=== PATIENT | female | born 1995 | race Caucasian/White ===

== ENCOUNTER 2017-05-03 12:38 | Emergency (ER) | payer MEDICAID ==
[~2017-05-03 12:38] MED LIST: AUGM875T PO
--- NOTE | 2017-05-03 14:26 | PD ---
HPI Chief Complaint abdominal pain, back and hip pain Date Seen: May 03, 2017 Time Seen: 14:00 Travel History International Travel<30 Days: No Contact w/Intl Traveler<30Days: No Known Affected Area: No History of Present Illness HPI Pt is a 21yo at 30 weeks and 6 days who presents with hip, back, and lateral abdominal pain since last night. She reports that her pain started last night around midnight. She has tried Tylenol, which did not help. She describes the pain as sharp and achy. She reports that the pain radiates down to her inner thigh and pelvic area and up to her ribs BL. She reports that the pain alternates sides and is worse when it is bilateral. 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 She denies any CTX, LOF, VB. She reports FM around 4 times per hour, down from constant FM. Para: 1 : 3 Miscarriage: 1 History Past Medical History Narrative Medical [employer] Act at 12 yo. Obstetric History Obstetric History for no dilation after 18 hours of labor during IOL for post-dates. She gave to a 8 lb 3oz boy on 05/19/14. She also reports a m/c at 16 weeks of gestation. Past Surgical History Narrative Surgical as above. Family History Narrative Family History Her father has DM. Social History Narrative Social History She lives at home with her mother, son, little brother. She used to smoke 1ppd before she found out she was , then she stopped after she found out she was . Alcohol Use: No Tobacco Use: No Substance Abuse: No Allergies-Medications (Allergen,Severity, Reaction): Coded Allergies: Bee Sting (Verified Allergy, Severe, 06/01/16) Cefizox (Verified Allergy, Severe, 06/01/16) Wasp (Verified Allergy, Unknown, 06/01/16) Home Meds Active Scripts Amoxicillin & Pot Clavulanate 875 mg Tab (Augmentin 875 mg Tab)875 Mg [id number] Mg PO BID 10 Days Prov:Cynthia Arriola MD 06/01/16 Narrative Medication PNV Review of Systems General / Constitutional: No: Fever, Weight Gain, Chills, Other Eyes: No: Diploplia, Blurred Vision, Visual changes, Pain, Photophobia HENT: Headaches, No: Vertigo, Lightheadedness Cardiovascular: No: Irregular Rhythm, Chest Pain or Discomfort, Palpitations, Tachycardia, Syncope, Varicosities, Edema, Cyanosis Respiratory: No: Cough, Short of Breath, Other Gastrointestinal: Abdominal Pain, No: Nausea, Vomiting, Diarrhea Genitourinary: No: Dysuria, Decreased Urinary Output, Oliguria Musculoskeletal: Pain (per HPI), No: Limited ROM, Weakness, Cramping, Edema Physical Exam 131/65, 93, 20, 98.6 Narrative GENERAL: Well-nourished, well-developed patient. SKIN: Warm and dry. HEAD: Normocephalic and atraumatic. EYES: No scleral icterus. No injection or drainage. ENT: No nasal drainage noted. Mucous membranes pink. Airway patent. NECK: Supple, trachea midline. No JVD. CARDIOVASCULAR: Regular rate and rhythm without murmurs, gallops, or rubs. RESPIRATORY: Breath sounds equal bilaterally. No accessory muscle use. ABDOMEN/GI: Abdomen soft, non-tender, bowel sounds present, no rebound, no guarding Gravid to 30 weeks size GENITOURINARY: External Genitalia: intact and normal in appearance Cervix: posterior Dilatation: 0cm, closed Effacement: thick Station: long Membranes: [intact] Uterine Contractions: [none] FHT's: Category: [Cat I] Baseline: [130] Reactive: [reactive] Variability: [moderate] Decels: [none] EXTREMITIES: No cyanosis or edema. BACK: Nontender without obvious deformity. No CVA tenderness. NEUROLOGICAL: Awake and alert. Motor and sensory grossly within normal limits. Five out of 5 muscle strength in all muscle groups. Normal speech. Data Data Vital Signs Reviewed: Yes Orders Fentanyl Inj (Fentanyl Inj) (05/03/17 14:15) MDM Plan Pt is a 21yo at 30 weeks and 6 days who presents with hip, back, and lateral abdominal pain since last night. 1. abdominal pain in third trimester of - ddx includes round lig pain , pain from adhesions, MSK pain - monitor vitals, labor status, heart rate - Fentanyl 50 mcg IM once - recommended bedrest s/d/w Dr. Medrano. Diagnosis Diagnosis: Primary Impression: Abdominal pain during Additional Impressions: Abdominal pain during in third trimester Abdominal pain during , antepartum Ruled Out: Active labor Disposition: DISCHARGE HOME Condition: Good Dell Donnelly MD R2 May 03, 2017 14:26
[2017-07-05] MEDS ORDERED: OXYC1TAB63 PO (16:23)
== END 2017-05-03 15:14 | disposition home or self-care (01) ==
LOC: HOBED 12:38
DX: O26.893 Other specified pregnancy related conditions, third trimester (principal); R10.9 Unspecified abdominal pain; Z3A.30 30 weeks gestation of pregnancy
CPT/HCPCS: 96372; 99284; J3010

== ENCOUNTER 2017-06-17 15:11 | Emergency (ER) | payer MEDICAID ==
--- NOTE | 2017-06-17 15:58 | PD ---
HPI Chief Complaint Leakage of fluid some pelvic pressure Date Seen: Jun 17, 2017 Time Seen: 15:50 Travel History International Travel<30 Days: No Contact w/Intl Traveler<30Days: No Known Affected Area: No History of Present Illness HPI Patient is 22-year-old white female previous who is 37 weeks and [facility] She is some loss of fluid per vagina and came in have that checked. She is also having some tightening and pressure. Her amnio sure is negative today. heart tones are reactive no contractions seen she is scheduled for consult this coming Sunday Weeks Gestation: 37 Para: 1 : 3 History Obstetric History Obstetric History Previous Past Surgical History Narrative Surgical One Social History Alcohol Use: No Tobacco Use: No Substance Abuse: No Allergies-Medications (Allergen,Severity, Reaction): Coded Allergies: bee venom protein (honey bee) (Unverified Allergy, Severe, 05/08/17) ceftizoxime (Unverified Allergy, Severe, 05/08/17) hornet venom (Unverified Allergy, Unknown, 05/08/17) Home Meds Active Scripts Amoxicillin & Pot Clavulanate 875 mg Tab (Augmentin 875 mg Tab) 875 Mg Tab, 875 MG PO BID for 10 Days, TAB Prov:Cynthia Arriola MD 06/01/16 Review of Systems General / Constitutional: No: Fever, Weight Gain, Chills, Other Eyes: No: Diploplia, Blurred Vision, Visual changes, Pain, Photophobia HENT: No: Headaches, Vertigo, Lightheadedness Cardiovascular: No: Irregular Rhythm, Chest Pain or Discomfort, Palpitations, Tachycardia, Syncope, Varicosities, Edema, Cyanosis Respiratory: No: Cough, Short of Breath, Other Gastrointestinal: No: Nausea, Vomiting, Diarrhea Genitourinary: No: Decreased Urinary Output, Oliguria Musculoskeletal: No: Limited ROM, Weakness, Cramping, Edema, Pain Skin: No Rash, No Itching, No Dryness, No Lumps, No Change in Pigmentation, No Change in Nails, No Alopecia, No Lesions Neurologic: No: Weakness, Dizziness, Syncope, Focal Abnormalities, Coordination Problem, Headache, Slurred Speech, Seizures Psychiatric: No: Depression, Suicidal Ideations, Homicidal Ideation Endocrine: No: Heat Intolerance, Cold Intolerance, Polydipsia, Polyuria, Other Physical Exam Narrative GENERAL: Well-nourished, well-developed patient. SKIN: Warm and dry. HEAD: Normocephalic and atraumatic. EYES: No scleral icterus. No injection or drainage. ENT: No nasal drainage noted. Mucous membranes pink. Airway patent. NECK: Supple, trachea midline. No JVD. CARDIOVASCULAR: Regular rate and rhythm without murmurs, gallops, or rubs. RESPIRATORY: Breath sounds equal bilaterally. No accessory muscle use. BREASTS: Bilateral exam showed no masses , no retractions, no nipple discharge. ABDOMEN/GI: Abdomen soft, non-tender, bowel sounds present, no rebound, no guarding Gravid to [-37] weeks size Fundal Height: [-37] GENITOURINARY: External Genitalia: intact and normal in appearance BUS glands: [-] Cervix: [post-] Dilatation: [-0] Effacement: [-0] Station: [-3] Presentation: [-vtx] Membranes: [intact amnisure neg] Uterine Contractions: [-occasional] FHT's: Category: [-1] Baseline: [-133] Reactive: [-yes] Variability: [mod-] Decels: [none-] EXTREMITIES: No cyanosis or edema. BACK: Nontender without obvious deformity. No CVA tenderness. NEUROLOGICAL: Awake and alert. Motor and sensory grossly within normal limits. Five out of 5 muscle strength in all muscle groups. Normal speech. MDM Interpretation(s) The patient is 22-year-old white female 37 weeks previous for repeat section at 39 weeks. She is loss of fluid today amnio sure is negative however. She's had no further leakage. No bleeding. On OB ED if heart rate is reactive and she is having occasional contraction. Cervix is closed and high Plan Plan to discharge home and she is to follow-up for consult and 4 days Diagnosis Diagnosis: Primary Impression: No leakage of amniotic fluid into vagina Additional Impressions: no leakage Previous section Disposition: DISCHARGE HOME Condition: Stable Fox Medrano II, MD Jun 17, 2017 15:58
[2017-07-05] MEDS ORDERED: OXYC1TAB63 PO (16:23)
== END 2017-06-17 16:40 | disposition home or self-care (01) ==
LOC: HOBED 15:11
DX: O26.893 Other specified pregnancy related conditions, third trimester (principal); O34.219 Maternal care for unspecified type scar from previous cesarean delivery; Z3A.37 37 weeks gestation of pregnancy
CPT/HCPCS: 84112; 99283

== ENCOUNTER 2017-06-29 08:24 | Inpatient (IN) | payer BC, MEDICAID ==
[~2017-06-29] VITALS: Ht 170.2 cm; Wt 123.0 kg
[2017-06-29] VITALS (13 sets, daily range): BP systolic 90–126; BP diastolic 51–84; PULSE 66–88; RESP 13–23; TEMP 97.7–98.4; O2SAT 97–100
[2017-06-29] MEDS ORDERED: LACTATED RINGER'S 1000 ML INJ 1,000 ML IV ONE (08:44)
--- NOTE | 2017-06-29 08:44 | HHI.HP ---
History & Physical H&P [facility] Consult (Detail) Patient Name: David Camacho Unit Number: [id number] Date of : 1995 Patient Status: Registered Clinic Attending Doctor: Fox Medrano II, MD HPI HPI Chief Complaint Patient here for repeat Date Seen: Jun 20, 2017 Time Seen: 14:00 Travel History International Travel<30 Days: No Contact w/Intl Traveler<30Days: No Known Affected Area: No History of Present Illness HPI This is 22-year-old white female G previous 39 wks has gone to [facility] has had regular visits no complications. Currently baby is active heart tracing reactive contractions she is not dilated no bleeding or leakage her due date is July 06 Weeks Gestation: 37 Para: 1 : 2 History (Limited) History Obstetric History Obstetric History Past Surgical History Narrative Surgical Social History Alcohol Use: No Tobacco Use: No Substance Abuse: No Allergies-Medications Allergies-Medications (Allergen,Severity, Reaction): Coded Allergies: bee venom protein (honey bee) (Unverified Allergy, Severe, 05/08/17) ceftizoxime (Unverified Allergy, Severe, 05/08/17) hornet venom (Unverified Allergy, Unknown, 05/08/17) Home Meds Active Scripts Amoxicillin & Pot Clavulanate 875 mg Tab (Augmentin 875 mg Tab) 875 Mg Tab, 875 MG PO BID for 10 Days, TAB Prov:Cynthia Arriola MD 06/01/16 ROS Review of Systems General / Constitutional: No: Fever, Weight Gain, Chills, Other Eyes: No: Diploplia, Blurred Vision, Visual changes, Pain, Photophobia HENT: No: Headaches, Vertigo, Lightheadedness Cardiovascular: No: Irregular Rhythm, Chest Pain or Discomfort, Palpitations, Tachycardia, Syncope, Varicosities, Edema, Cyanosis Respiratory: No: Cough, Short of Breath, Other Gastrointestinal: No: Nausea, Vomiting, Diarrhea Genitourinary: No: Decreased Urinary Output, Oliguria Musculoskeletal: No: Limited ROM, Weakness, Cramping, Edema, Pain Skin: No Rash, No Itching, No Dryness, No Lumps, No Change in Pigmentation, No Change in Nails, No Alopecia, No Lesions Neurologic: No: Weakness, Dizziness, Syncope, Focal Abnormalities, Coordination Problem, Headache, Slurred Speech, Seizures Psychiatric: No: Depression, Suicidal Ideations, Homicidal Ideation Endocrine: No: Heat Intolerance, Cold Intolerance, Polydipsia, Polyuria, Other Physical Exam Physical Exam Narrative GENERAL: Well-nourished, well-developed patient. SKIN: Warm and dry. HEAD: Normocephalic and atraumatic. EYES: No scleral icterus. No injection or drainage. ENT: No nasal drainage noted. Mucous membranes pink. Airway patent. NECK: Supple, trachea midline. No JVD. CARDIOVASCULAR: Regular rate and rhythm without murmurs, gallops, or rubs. RESPIRATORY: Breath sounds equal bilaterally. No accessory muscle use. BREASTS: Bilateral exam showed no masses , no retractions, no nipple discharge. ABDOMEN/GI: Abdomen soft, non-tender, bowel sounds present, no rebound, no guarding Gravid to [38-] weeks size Fundal Height: [38-] GENITOURINARY: External Genitalia: intact and normal in appearance BUS glands: [-] Cervix: [-Post] Dilatation: [-] Closed Effacement: Thick [-] Station: [-3] Presentation: [-vtx] Membranes: [intact ] Uterine Contractions: [none-] FHT's: Category: [-1] Baseline: [-133] Reactive: [-yes] Variability: [mod-] Decels: [none-] EXTREMITIES: No cyanosis or edema. BACK: Nontender without obvious deformity. No CVA tenderness. NEUROLOGICAL: Awake and alert. Motor and sensory grossly within normal limits. Five out of 5 muscle strength in all muscle groups. Normal speech. Data Data Data Group B Strep: Positive MDM MDM Interpretation(s) Patient is 22-year-old white female at 39 wks previous 1 for repeat . She understands risks benefits and was repeat. Due date July 06 plan week prior to June 29 Plan Scheduled for for 10:30 in the morning on June [address] Salamanca Diagnosis: previous Disposition: ADMIT Condition: Stable Fox Medrano II, MD Jun 20, 2017 14:14 Fox Medrano II, MD Jun 29, 2017 08:44
[2017-06-29 09:09] LABS: AUTOMATED NEUTROPHIL # 6.3 TH/MM3 (1.8-7.7); BASOPHIL % 0.2 % (0.0-2.0); EOSINOPHIL % 0.5 % (0.0-4.0); HEMATOCRIT 36.9 % (35.0-46.0); HEMO FLAGS DIFF FINAL; LYMPH % 19.5 % (9.0-44.0); LYMPHOCYTE # 1.7 TH/MM3 (1.0-4.8); MEAN CELL VOLUME 87.3 FL (80.0-100.0); MEAN CORPUSCULAR HEMOGLOBIN 30.1 PG (27.0-34.0); MEAN CORPUSCULAR HGB CONC 34.4 % (32.0-36.0); MONO % 7.7 % (0.0-8.0); NEUT % 72.1 % (16.0-70.0); PLATELET COUNT 231 TH/MM3 (150-450); RED BLOOD COUNT 4.23 MIL/MM3 (4.00-5.30); RED CELL DISTRIBUTION WIDTH 13.6 % (11.6-17.2); WHITE BLOOD COUNT 8.8 TH/MM3 (4.0-11.0)
[2017-06-29] MEDS ORDERED: LACTATED RINGER'S 1000 ML INJ 1,000 ML IV SCH ×2 (09:14→17:59)
[2017-06-29 09:57] LABS: ANION GAP 9 MEQ/L (5-15); AST (GOT) 9 U/L (15-37); BICARBONATE 20.1 MEQ/L (21.0-32.0); BLOOD UREA NITROGEN 4 MG/DL (7-18); CHLORIDE 109 MEQ/L (98-107); GLOMERULAR FILTRATION RATE 210 ML/MIN (>89); POTASSIUM 3.9 MEQ/L (3.5-5.1); SODIUM (NA) 138 MEQ/L (136-145)
[2017-06-29 10:01] LABS: BLOOD, URINE NEG (NEG); COMMENT (UR) CULT NOT INDICATED; CULTURE IF INDICATED CULT NOT INDICATED; GLUCOSE,URINE NEG (NEG); KETONE, URINE NEG (NEG); MUCUS URINE FEW /lpf (OCC); NITRITE,URINE NEG (NEG); SQUAMOUS EPITHELIAL CELL URINE 2 /hpf (0-5); URINE COLOR YELLOW (YELLW/STRAW)
[2017-06-29 10:05] LABS: ALKALINE PHOSPHATASE 107 U/L (45-117); ALT (GPT) 11 U/L (10-53); TOTAL BILIRUBIN ADULT 0.2 MG/DL (0.2-1.0)
[2017-06-29] MEDS ORDERED: CITRIC ACID-SODIUM CITRATE LIQ 30 ML UDC PO SCH (10:15)
[2017-06-29] MEDS ORDERED: ACETAMINOPHEN 1000 MG/100 ML 100 ML IV ONE (10:51)
[2017-06-29] MEDS ORDERED: CLINDAMYCIN INJ 600 MG in SODIUM CHLORIDE 0.9% INJ 100 ML IV SCH (11:00)
[2017-06-29] MEDS ORDERED: ONDANSETRON HCL 4 MG/2 ML VIAL IV PUSH ONE (12:00)
[2017-06-29] MEDS ORDERED: MORPHINE SULFATE PF 5 MG/10 ML VIAL ONE (12:00)
[2017-06-29] MEDS ORDERED: ePHEDrine/NS 25 MG/5 ML SYR IV ONE (12:00)
[2017-06-29] MEDS ORDERED: LACTATED RINGER'S 1000 ML INJ 2,000 ML IV ONE (12:00)
[2017-06-29] MEDS ORDERED: OXYTOCIN 10 UNIT/ML AMP IV ONE (12:00)
[2017-06-29] MEDS ORDERED: PHENYLEPH/NS 1000 MCG/10 ML SYR IV ONE (12:00)
[2017-06-29] MEDS ORDERED: ZOLPIDEM TARTRATE 5 MG TAB PO PRN (13:00)
[2017-06-29] MEDS ORDERED: ACETAMINOPHEN 325 MG TAB PO PRN (13:00)
[2017-06-29] MEDS ORDERED: oxyCODONE/ACETAMINOPHEN 5 MG/325 MG TAB PO PRN (13:00)
[2017-06-29] MEDS ORDERED: KETOROLAC TROMETHAMINE 60 MG/2 ML (IM) VIAL IM PRN (13:00)
[2017-06-29] MEDS ORDERED: OXYTOCIN 30 UNITS-500ML PREMIX 500 ML IV ONE (13:00)
[2017-06-29] MEDS ORDERED: ONDANSETRON HCL 4 MG/2 ML VIAL IV PUSH PRN (13:00)
[2017-06-29] MEDS ORDERED: SODIUM CHLORIDE 0.9% FLUSH 10 ML FLUSH IV FLUSH PRN (13:00)
[2017-06-29] MEDS ORDERED: OXYTOCIN 30 UNITS-500ML PREMIX 500 ML ONE (13:03)
[2017-06-29] MEDS ORDERED: KETOROLAC TROMETHAMINE 30 MG/ML (IVP) VIAL ONE (13:07)
--- NOTE | 2017-06-29 13:26 | PD.OB.DELI ---
Procedure Note Section Procedure Pre Op Diagnosis: (1) 39 weeks gestation of (2) Previous section Post Op Diagnosis: (1) Previous section (2) 39 weeks gestation of Performed by Aldair Salamanca Procedure: Repeat Low Transverse Sec Indication for delivery: Desired elective repeat Previous condition: Other (previous LTCS) Informed consent obtained: For anesthesia, For procedure Confirmed correct: Time-out taken Anesthesia: Spinal Medication prior to procedure: As documented in eMAR Monitoring during procedure: Blood pressure monitoring, buckshot swage operator Urinary catheter: Inserted using sterile technique, To dependent drainage Sterile preparation: With 2% chlorexidine (Hibiclens) Position: Supine with wedge to left side Operative Features Skin Incision: Pfannenstiel Uterine Incision: Low transverse w/knife / blunt ext Presentation: Occiput anterior Delivery date: Jun 29, 2017 Delivery time: 11:26 Delivery of : Assisted : Female One Minute : 8 Five Minute : 9 Weight: 3800g Status of : Viable, Cord blood Placenta delivered: Intact Medications: Antibiotics, Oxytocin Estimated blood loss: 600cc Procedure tolerated: Well Maternal Condition: Stable Condition: Stable Procedure in detail Pt brought to OR , properly identified and informed consent reviewed. She positioned for spinal anesthesia which was induced without any difficulty. Pt was then positioned in dorsal supine position with slight leftward tilt. Ratliff catheter was inserted under sterile technique and allowed to drain under gravity. She was cleansed and draped in standard sterile fashion. After confirming adequacy of anesthesia Pfannensteil incision was made through her prior scar. Incision was taken through subcutaneous tissue using Bovie. Rectus fascia was scored and extended bilateral using curved Pathak scissors. Rectus fascia was then elevated between 2 Kocker clamps and dissected off from the underlying rectus muscle. rectus muscles were in midline and underlying peritoneum was identified.this tented upwards between 2 hemostats and entered sharply with Metzebaum scissors.The peritoneal incision was then extended superiorly and inferiorly with careful visualization of the bladder. bladder blade was then inserted. Vesico-uterine peritoneal reflection was identified, tented with pickups and extended bilaterally. Bladder flap was then created digitally. Bladder blade was then repositioned Fresh scalpel was then used to make incision over MONTSERRAT and amniotomy was done with clear fluid. was delivered without ant difficulty. Cord was clamped and divided and passed off to waiting pediatricians. Placenta membranes were delivered spontaneously and the uterus was cleared of all clot and debris. Uterus was then exteriorized and incision was closed in 3 layers, first of O Vicryl in a continuous locking fashion for hemostasis,and the second of the same material used to imbricate the first. After confirming adequacy of hemostasis, the vesico-uterine refection was reapproximated using 2.0 Vicryl. The gutters were cleansed of clots, and the uterus was returned to its intraperitoneal location. Sepra-film adhesion barrier was then placed over the incision and uterine fundus. parietal peritoneum was then closed with 2.0 Vicryl. fascia was closed with 1.0 PDS after which subcutaneous tissue was irrigated with warm saline, and reapproximated with continuous 2.0 Vicryl. finally skin was closed with 3.0 Vicryl in subcuticular fashion. sterile dressing placed. pt tolerated procedure well and transferred stable to recovery. Aldair Salamanca MD Jun 29, 2017 13:26
[2017-06-29] MEDS ORDERED: KETOROLAC TROMETHAMINE 30 MG/ML (IVP) VIAL IM ONE (14:00)
[2017-06-29] MEDS ORDERED: EPIDURAL-DIPHENHYDRAMINE HCL 50 MG/ML VIAL IV PUSH PRN (15:45)
[2017-06-29] MEDS ORDERED: EPIDURAL-NALOXONE HCL 0.4 MG/ML AMP IV PUSH PRN (15:45)
[2017-06-29] MEDS ORDERED: EPIDURAL-NO SYSTEMIC NARCOTICS PRN (15:45)
[2017-06-29] MEDS ORDERED: EPIDURAL-DO NOT ADMINISTER ANTICOAGULANTS PRN (15:45)
[2017-06-29] MEDS ORDERED: EPIDURAL-DIPHENHYDRAMINE HCL 50 MG CAP PO PRN (15:45)
[2017-06-29] MEDS: IBUPROFEN 600 MG TAB PO PRN (19:50)
[2017-06-29] MEDS: oxyCODONE/ACETAMINOPHEN 5 MG/325 MG TAB PO PRN (19:50)
[2017-06-29] MEDS: CLINDAMYCIN INJ 600 MG in SODIUM CHLORIDE 0.9% INJ 100 ML IV SCH (19:50)
[2017-06-29] MEDS ORDERED: SODIUM CHLORIDE 0.9% FLUSH 10 ML FLUSH IV FLUSH SCH (21:00)
[2017-06-30 01:00] VITALS: BP 103/50; PULSE 70; RESP 16; TEMP 98.4
[2017-06-30] MEDS: CLINDAMYCIN INJ 600 MG in SODIUM CHLORIDE 0.9% INJ 100 ML IV SCH (02:26)
[2017-06-30] MEDS: IBUPROFEN 600 MG TAB PO PRN (02:26)
[2017-06-30] MEDS: oxyCODONE/ACETAMINOPHEN 5 MG/325 MG TAB PO PRN ×5 (03:44→20:08)
[2017-06-30 05:57] LABS: AUTOMATED NEUTROPHIL # 5.5 TH/MM3 (1.8-7.7); BASOPHIL % 0.4 % (0.0-2.0); EOSINOPHIL # 0.1 TH/MM3 (0-0.4); EOSINOPHIL % 1.2 % (0.0-4.0); HEMATOCRIT 31.7 % (35.0-46.0); HEMO FLAGS DIFF FINAL; LYMPH % 22.3 % (9.0-44.0); LYMPHOCYTE # 1.9 TH/MM3 (1.0-4.8); MEAN CELL VOLUME 88.7 FL (80.0-100.0); MEAN CORPUSCULAR HEMOGLOBIN 30.2 PG (27.0-34.0); NEUT % 65.1 % (16.0-70.0); PLATELET COUNT 178 TH/MM3 (150-450); RED BLOOD COUNT 3.58 MIL/MM3 (4.00-5.30); RED CELL DISTRIBUTION WIDTH 13.4 % (11.6-17.2); WHITE BLOOD COUNT 8.5 TH/MM3 (4.0-11.0)
[2017-06-30 08:00] VITALS: BP 108/54; PULSE 16; RESP 16; TEMP 98
--- NOTE | 2017-06-30 08:10 | HHI.OB ---
Subjective Post Operative Day: 1 Remarks Postoperative day number 1. AFVSS overnight. Pain controlled with medications. Incision not draining. Decreased lochia. Denies dysuria. No breast tenderness. She is feeding the baby via breast. Appetite good. No nausea or vomiting. Endorses flatus. No bowel movement. Ambulating well. Denies calf pain, shortness of breath, or cough. Otherwise, she is doing well this morning and has no other complaints. Objective Vitals/I&O Vital Signs Date Time Temp Pulse Resp B/P (MAP) Pulse Ox O2 Delivery O2 Flow Rate FiO2 06/30/17 01:00 98.4 70 16 103/50 (67) 06/29/17 20:00 98.4 72 18 108/63 (78) 99 06/29/17 16:52 97.7 06/29/17 16:52 83 109/67 (81) 06/29/17 16:52 16 97 06/29/17 14:35 98.2 06/29/17 14:35 67 18 121/54 (76) 06/29/17 13:20 66 20 105/53 (70) 100 06/29/17 13:05 73 13 105/72 (83) 100 06/29/17 12:50 72 17 102/55 (71) 100 06/29/17 12:35 100 06/29/17 12:35 69 14 105/51 (69) 06/29/17 12:20 73 23 111/53 (72) 100 06/29/17 12:05 98.2 71 15 90/51 (64) 100 06/29/17 09:44 98.0 81 18 126/84 (98) 100 06/29/17 09:30 18 06/29/17 09:30 98.0 06/29/17 09:01 81 126/84 (98) 06/29/17 08:49 88 121/68 (85) Result Diagram: 06/30/17 0503 06/29/17 0855 Objective Remarks GENERAL: Well-nourished, well-developed patient. CARDIOVASCULAR: Regular rate and rhythm without murmurs, gallops, or rubs. RESPIRATORY: Breath sounds equal bilaterally. No accessory muscle use. ABDOMEN/GI: Abdomen soft, non-tender, bowel sounds present. Incision: Clean, dry and intact. Fundus: Firm, non-tender at umbilicus. GENITOURINARY: Light to moderate bleeding. EXTREMITIES: No cyanosis or edema, non-tender, without signs of DVT. Medications and IVs Current Medications Medications (Trade) Dose Ordered Sig/Rajeev Route Start Time Stop Time Status Last Admin (Jeovannya Liq) 30 ml DIETARY INTERNSHIP PO 06/29/17 10:15 07/03/17 10:14 06/29/17 10:50 Lactated Ringer's 1,000 ml @ 100 mls/hr Q10H IV 06/29/17 17:59 06/30/17 13:58 (NS Flush) 2 ml BID IV FLUSH 06/29/17 21:00 (NS Flush) 2 ml UNSCH PRN IV FLUSH 06/29/17 13:00 (Mylicon Chew) 80 mg QID PRN PO 06/29/17 13:00 (Tylenol) 650 mg Q6H PRN PO 06/29/17 13:00 (Motrin) 600 mg Q6H PRN PO 06/29/17 13:00 06/30/17 02:26 (Toradol Inj) 60 mg UNSCH X1 PRN IM 06/29/17 13:00 06/30/17 12:59 (Percocet 5-325 Mg) 1 tab Q4H PRN PO 06/29/17 13:00 06/30/17 00:00 (Percocet 5-325 Mg) 2 tab Q4H PRN PO 06/29/17 13:00 06/30/17 08:06 (Anisha-Colace) 2 tab Q12H PRN PO 06/29/17 13:00 (Ambien) 5 mg HS PRN PO 06/29/17 13:00 (M-M-R Ii Inj) 0.5 ml ONCE ONCE SQ 06/30/17 16:00 06/30/17 16:01 (Boostrix Inj) 0.5 ml ONCE ONCE IM 06/30/17 16:00 06/30/17 16:01 (Zofran Inj) 4 mg Q6H PRN IV PUSH 06/29/17 13:00 Miscellaneous Information NO SYSTEMIC NARCOTICS TO BE GIVEN FO... UNSCH PRN .XX 06/29/17 15:45 06/30/17 15:44 (Narcan Inj) 0.4 mg UNSCH PRN IV PUSH 06/29/17 15:45 06/30/17 15:44 (Benadryl Inj) 25 mg Q6H PRN IV PUSH 06/29/17 15:45 06/30/17 15:44 06/29/17 16:24 (Benadryl) 50 mg Q6H PRN PO 06/29/17 15:45 06/30/17 15:44 Miscellaneous Information ALL NURSING DEPARTMENTS UNSCH PRN .XX 06/29/17 15:45 06/30/17 15:44 Assessment/Plan Assessment and Plan 22y/o female who is POD#1 s/p CXN. -Continue routine care. -Percocet and Motrin PRN pain. -Encouraged OOB. Advised pelvic rest for 6 wks. Will need a f/u appt. in 1 wk for incision check. -Re: ctrl, she is undecided -D/c in 1-2 more days. dw OB attending Marcus Pimentel MD, R2 Jun 30, 2017 08:10
[2017-06-30] MEDS: KETOROLAC TROMETHAMINE 10 MG TAB PO PRN ×2 (09:19→15:33)
[2017-06-30 15:30] VITALS: BP 131/77; PULSE 76; RESP 18; TEMP 98.9
[2017-06-30] MEDS: DOCUSATE SODIUM 50 MG/SENNA 8.6 MG TAB PO PRN (15:34)
[2017-06-30] MEDS ORDERED: DIPHTH/TETANUS/ACEL PERTUSSIS (BOOSTER) 0.5 ML VIAL/PFS IM ONE (16:00)
[2017-06-30] MEDS ORDERED: MEASLES, MUMPS, RUBELLA VACCINE 0.5 ML VIAL SQ ONE (16:00)
[2017-06-30] MEDS: SIMETHICONE 80 MG CHEWABLE TAB PO PRN (17:13)
[2017-06-30] MEDS: KETOROLAC TROMETHAMINE 60 MG/2 ML (IM) VIAL IM PRN (18:08)
[2017-06-30 20:00] VITALS: BP 123/68; PULSE 83; RESP 16; TEMP 97.8
[2017-07-01] MEDS: KETOROLAC TROMETHAMINE 60 MG/2 ML (IM) VIAL IM PRN ×4 (00:12→22:38)
[2017-07-01] MEDS: oxyCODONE/ACETAMINOPHEN 5 MG/325 MG TAB PO PRN ×3 (00:13→08:04)
[2017-07-01] MEDS: DOCUSATE SODIUM 50 MG/SENNA 8.6 MG TAB PO PRN ×2 (03:30→17:04)
[2017-07-01] MEDS: SIMETHICONE 80 MG CHEWABLE TAB PO PRN ×3 (03:30→22:37)
[2017-07-01 07:40] VITALS: TEMP 98.2
--- NOTE | 2017-07-01 09:29 | HHI.OB ---
Subjective Post Operative Day: 2 Remarks Patient seen and examined this AM. Postoperative day number 2. AFVSS overnight. She states she is still having some pain, currently taking po percocet and toradol IM. Incision not draining. Decreased lochia. Denies dysuria. No breast tenderness. Appetite good. No nausea or vomiting. Endorses flatus. No bowel movements yet. Denies fevers or chills, calf pain, shortness of breath, or cough. (Marcell Gil MD R2) Remarks Patient seen and evaluated with resident under direct supervision, agree with assessment and plan. (Sandeep Lopez MD) Objective Vitals/I&O Vital Signs Date Time Temp Pulse Resp B/P (MAP) Pulse Ox O2 Delivery O2 Flow Rate FiO2 07/01/17 07:40 98.2 06/30/17 20:00 97.8 16 06/30/17 20:00 83 123/68 (86) 06/30/17 15:30 98.9 76 18 06/30/17 15:30 131/77 (95) (Marcell Gil MD R2) Result Diagram: 06/30/17 0503 06/29/17 0855 Objective Remarks GENERAL: Well-nourished, well-developed patient. CARDIOVASCULAR: Regular rate and rhythm without murmurs, gallops, or rubs. RESPIRATORY: Breath sounds equal bilaterally. No accessory muscle use. ABDOMEN/GI: Abdomen soft, non-tender, bowel sounds present. Incision: Clean, dry and intact. Fundus: Firm, non-tender at umbilicus. GENITOURINARY: Light to moderate bleeding. EXTREMITIES: No cyanosis or edema, non-tender, without signs of DVT. Medications and IVs Current Medications Medications (Trade) Dose Ordered Sig/Rajeev Route Start Time Stop Time Status Last Admin (Bicitra Liq) 30 ml COATING MIXER SUPERVISOR PO 06/29/17 10:15 07/03/17 10:14 06/29/17 10:50 (NS Flush) 2 ml BID IV FLUSH 06/29/17 21:00 (NS Flush) 2 ml UNSCH PRN IV FLUSH 06/29/17 13:00 (Mylicon Chew) 80 mg QID PRN PO 06/29/17 13:00 07/01/17 03:30 (Tylenol) 650 mg Q6H PRN PO 06/29/17 13:00 (Percocet 5-325 Mg) 1 tab Q4H PRN PO 06/29/17 13:00 06/30/17 00:00 (Anisha-Colace) 2 tab Q12H PRN PO 06/29/17 13:00 07/01/17 03:30 (Ambien) 5 mg HS PRN PO 06/29/17 13:00 (Zofran Inj) 4 mg Q6H PRN IV PUSH 06/29/17 13:00 (Toradol) 10 mg Q6H PRN PO 06/30/17 08:15 07/05/17 08:14 06/30/17 15:33 (Toradol Inj) 15 mg Q6H PRN IM 06/30/17 17:45 07/01/17 17:44 07/01/17 06:23 (Percocet 5-325 Mg) 2 tab Q4H PRN PO 06/30/17 19:45 07/01/17 08:04 (Marcell Gil MD R2) Assessment/Plan Assessment and Plan 22y/o female who is POD#2 s/p CXN. -Continue routine care. -Continue Percocet, Motrin, Toradol PRN pain. -Encouraged OOB. Advised pelvic rest for 6 wks. Will need a f/u appt. in 1 wk for incision check. -Re: ctrl, she is undecided -Anticipate discharge home tomorrow wdw OB attending (Marcell Gil MD R2) Marcell Gil MD R2 Jul 01, 2017 09:29 Sandeep Lopez MD Jul 01, 2017 09:41
[2017-07-01] MEDS ORDERED: HYDROmorphone HCL 2 MG TAB PO PRN (12:15)
[2017-07-01] MEDS: HYDROmorphone HCL 4 MG TAB PO PRN ×3 (13:02→20:48)
[2017-07-01 21:30] VITALS: BP 134/91; PULSE 76; RESP 16; TEMP 99
[2017-07-01] MEDS ORDERED: oxyCODONE/ACETAMINOPHEN 5 MG/325 MG TAB PO PRN (23:00)
[2017-07-02] MEDS: oxyCODONE/ACETAMINOPHEN 5 MG/325 MG TAB PO PRN ×3 (00:48→08:52)
[2017-07-02] MEDS: DOCUSATE SODIUM 50 MG/SENNA 8.6 MG TAB PO PRN (04:56)
[2017-07-02] MEDS: KETOROLAC TROMETHAMINE 60 MG/2 ML (IM) VIAL IM PRN (04:57)
[2017-07-02] MEDS: SIMETHICONE 80 MG CHEWABLE TAB PO PRN ×2 (04:57→10:45)
[2017-07-02 07:30] VITALS: BP 88/59; PULSE 67; RESP 18; TEMP 98.2
--- NOTE | 2017-07-02 08:27 | HHI.OB ---
Subjective Post Operative Day: 3 Remarks Postoperative day number 3. AFVSS overnight. Pain controlled with medications. Incision not draining. Decreased lochia. Denies dysuria. No breast tenderness. She is feeding the baby via breast. Appetite good. No nausea or vomiting. Endorses flatus. No bowel movement. Ambulating well. Denies calf pain, shortness of breath, or cough. Otherwise, she is doing well this morning and has no other complaints. Objective Vitals/I&O Vital Signs Date Time Temp Pulse Resp B/P (MAP) Pulse Ox O2 Delivery O2 Flow Rate FiO2 07/01/17 21:30 99.0 76 16 134/91 (105) Result Diagram: 06/30/17 0503 06/29/17 0855 Objective Remarks GENERAL: Well-nourished, well-developed patient. CARDIOVASCULAR: Regular rate and rhythm without murmurs, gallops, or rubs. RESPIRATORY: Breath sounds equal bilaterally. No accessory muscle use. ABDOMEN/GI: Abdomen soft, non-tender, bowel sounds present. Incision: Clean, dry and intact. Fundus: Firm, non-tender at umbilicus. GENITOURINARY: Light to moderate bleeding. EXTREMITIES: No cyanosis or edema, non-tender, without signs of DVT. Medications and IVs Current Medications Medications (Trade) Dose Ordered Sig/Rajeev Route Start Time Stop Time Status Last Admin (Bicitra Liq) 30 ml SHOP ME[employer]IC PO 06/29/17 10:15 07/03/17 10:14 06/29/17 10:50 (NS Flush) 2 ml BID IV FLUSH 06/29/17 21:00 (NS Flush) 2 ml UNSCH PRN IV FLUSH 06/29/17 13:00 (Mylicon Chew) 80 mg QID PRN PO 06/29/17 13:00 07/02/17 04:57 (Tylenol) 650 mg Q6H PRN PO 06/29/17 13:00 (Anisha-Colace) 2 tab Q12H PRN PO 06/29/17 13:00 07/02/17 04:56 (Ambien) 5 mg HS PRN PO 06/29/17 13:00 (Zofran Inj) 4 mg Q6H PRN IV PUSH 06/29/17 13:00 (Toradol Inj) 15 mg Q6H PRN IM 07/01/17 22:00 07/02/17 12:00 07/02/17 04:57 (Percocet 5-325 Mg) 1 tab Q4H PRN PO 07/01/17 23:00 (Percocet 5-325 Mg) 2 tab Q4H PRN PO 07/01/17 23:00 07/02/17 04:57 Assessment/Plan Assessment and Plan 22y/o female who is POD#3 s/p CXN. -Continue routine care. -Continue Percocet, Motrin, Toradol PRN pain. -Encouraged OOB. Advised pelvic rest for 6 wks. Will need a f/u appt. in 1 wk for incision check. -Re: ctrl, she wants the copper IUD -Anticipate discharge home today [facility] attending Marcus Pimentel MD, R2 Jul 02, 2017 08:27
--- NOTE | 2017-07-02 08:32 | HHI.DCPOC ---
Discharge Care Plan Diagnosis: (1) care following delivery Report Symptoms to Your Doctor -Temperature above 100.5 degrees -Redness, of incision or excessive or foul smelling drainage -Unusual pain or calf pain -Increased vaginal bleeding -Painful or difficulty urinating -Feelings of extreme sadness or anxiety after 2 weeks Goals to Promote Your Health * To prevent worsening of your condition and complications * To maintain your health at the optimal level Directions to Meet Your Goals Take your medications as prescribed Follow your dietary instruction Follow activity as directed Ensure plenty of rest for recovery Drink fluids for hydration Keep your appointments as scheduled Take your immunizations and boosters as scheduled If your symptoms worsen call your PCP, if no PCP go to Urgent Care Center or Emergency Room Smoking is Dangerous to Your Health. Avoid second hand smoke Call the 24-hour crisis hotline for domestic abuse at Marcus Pimentel MD, R2 Jul 02, 2017 08:32
[2017-07-02] MEDS ORDERED: SENN1TAB PO (08:35)
[2017-07-02] MEDS ORDERED: OXYC1TAB63 PO (08:35)
[2017-07-02] MEDS ORDERED: IBUP-232 PO (08:35)
[2017-07-02] MEDS ORDERED: BREAST PUMP1 MI1 ×2 (08:36→09:18)
[2017-07-02] MEDS ORDERED: IBUPROFEN 600 MG TAB PO PRN (10:45)
[2017-07-02] MEDS ORDERED: KETO10 PO (18:03)
[2017-07-05] MEDS ORDERED: OXYC1TAB63 PO (16:23)
== END 2017-07-02 11:41 | disposition home or self-care (01) | DRG 766 ==
LOC: H2EB 08:24 → H1EA 13:29
PROVIDERS: ADMIT Obstetrics & Gynecology; ATTEND Obstetrics & Gynecology
PROC: 10D00Z1 Extraction of Products of Conception, Low, Open Approach (ICD-10-PCS; principal; 2017-06-29)
PROC: 3E0P05Z Introduction of Adhesion Barrier into Female Reproductive, Open Approach (ICD-10-PCS; 2017-06-29)
DX: O34.211 Maternal care for low transverse scar from previous cesarean delivery (principal); O99.824 Streptococcus B carrier state complicating childbirth; Z37.0 Single live birth; Z3A.39 39 weeks gestation of pregnancy
CPT/HCPCS: 59025; 80053; 81001; 85025; 86850; 86900; 86901; J0131; J1200; J1885; J2274; J2370; J2405; J2590; J7120